=== PATIENT | female | born 1990 | race Two or more races ===

== ENCOUNTER 2025-06-16 10:12 | Outpatient (AMB) | payer MEDICAID, SELFPAY ==
--- NOTE | 2025-06-16 10:20 | A.OFFVIS_ITS ---
Vital Signs 06/16/25 10:21 Height 5 ft Weight 172 lb BMI 33.6 BP 134/63 Blood Pressure Location Lt brachial Position Sitting Respiration 16 Pulse 89 Pulse Source Pulse Oximeter Pulse Oximetry (%) 96 Oxygen Delivery Method Room Air Intake Visit Reasons: mechanical back pain Landscaping Specialist Required: No Accompanied by: Spouse Allergies No Known Allergies (No Known Allergies*) Allergy (Verified 06/16/25 10:23) Medication List - Last Reconciled 06/16/25 by Aurora John LPN No Known Home Meds HPI HPI mechanical back pain: Details: History of Present Illness The patient is a 34-year-old female presenting for evaluation of low back and neck pain. She reports that the pain has been present for more than a year and has increased over the last year. The pain is located mostly in her neck but also affects her back. The patient has four children, aged 13, 11, 9, and a [id number]. The worsening of her pain is thought to be associated with lifting and picking up her youngest child. She has not previously undergone physical therapy for this condition. Pain Description - Location: The patient complains of pain mostly in the neck, as well as the back. - Onset and Duration: The pain has been present for more than one year. - Progression: The pain has increased over the last year. - Exacerbating Factors: Picking up her baby is a suspected cause for the increased pain. Physical Exam - Constitutional: Patient's weight was obtained. - Appears afebrile. - Alert and oriented. - Mood and affect appropriate. - Follows and participates in conversation appropriately. - Respiratory effort is unlabored. - Able to transition from sit to stand unassisted. - Ambulates with bilaterally normal heel strike and toe off. - Able to stand and walk on toes and heels. Results Pain Management - Activities of Daily Living: Pain is associated with lifting and carrying her young child. - Analgesia: Not discussed. - Affect: Not discussed. - Adverse Effects: Not discussed. - Aberrant Drug Related Behaviors: Not discussed. [facility] Medical History (Updated 06/16/25 @ 10:43 by Chacho Choudhary MD) Backache Dorsalgia, unspecified Physical Exam Vital Signs: Last Vital Signs Pulse 89 06/16/25 10:21 Resp 16 06/16/25 10:21 BP 134/63 06/16/25 10:21 Pulse Ox 96 06/16/25 10:21 Oxygen Delivery Method Room Air 06/16/25 10:21 BMI result Body Mass Index 33.6 Assessment & Plan Assessment & Plan (1) Low back pain: Code(s): M54.50 - Low back pain, unspecified Category: Medical (2) Neck pain: Code(s): M54.2 - Cervicalgia Category: Medical Plan Plan Patient was informed and verbally consented to the use of an ambient scribe for clinic note documentation during this visit. 1. Low Back And Neck Pain - The patient's pain is considered common for a mother, attributed to back muscle weakness from and the physical strain of lifting a child. - A referral for physical therapy is the primary intervention, as it is the fir st line of treatment and often required by insurance. - The patient was provided with an order for physical therapy and names of two facilities: [facility] in [place] and [facility] in [place]. - She was instructed to confirm her insurance is accepted by the chosen facility. - The plan is for her to attend a few sessions to learn the exercises and then continue them daily at home for 4-6 months to strengthen her back. - Follow-up is recommended only if her condition does not improve after consistently performing the exercises. Discussion Notes I discussed with the patient that her back and neck pain are very common in mothers, resulting from weakened back muscles after combined with the physical demands of caring for a young child, such as lifting and carrying. I explained that the first and most crucial step in treatment is physical therapy to strengthen her back. I also noted that insurance policies require a course of conservative therapy like physical therapy before considering other treatments. I provided an order for physical therapy and suggested two potential locations, [facility] and [facility], advising her to call to confirm they accept her insurance. I emphasized the importance of attending a few sessions to learn the exercises correctly and then consistently performing them at home every day, stating it would likely take four to six months to see improvement. I advised her to return for a follow-up appointment if her pain does not resolve after this period of dedicated exercise. Patient Instructions - I have given you an order for physical therapy for your neck and back pain. - Two possible places for physical therapy are [facility] in [place] and [facility] in [place]. Please call them to make an appointment and check if they accept your insurance. - You should go to physical therapy to learn the exercises to strengthen your back. - It is very important to do these exercises every day at home. - It will likely take about 4 to 6 months of doing these exercises for your back to feel better. - If your pain does not get better after doing the exercises for several months, please come back and see me. Orders: Orders PT Evaluation and Treatment 06/16/25 M54.50 - Low back pain, unspecified, M54.2 - Cervicalgia Coding Level of Care Code New Pt Level 4 (48335) Diagnoses Low back pain M54.50 Neck pain M54.2
[2025-06-16 10:21] VITALS: BP 134/63; PULSE 89; RESP 16; O2SAT 96; BMI 33.6
== END 2025-06-16 10:58 | disposition home or self-care (01) ==
PROVIDERS: Visit Provider Internal Medicine
DX: M54.50 Low back pain, unspecified (principal); M54.2 Cervicalgia
CPT/HCPCS: 99204

== ENCOUNTER → 2025-06-16 10:12 | Outpatient (BNVA) | payer MEDICAID, SELFPAY | PROVIDERS: Visit Provider Internal Medicine | DX: M54.50 Low back pain, unspecified (principal); M54.2 Cervicalgia | CPT/HCPCS: 99202 ==